=== PATIENT | male | born 1980 | race Caucasian/White ===

== ENCOUNTER 2020-04-08 02:25 | Emergency (ER) | payer MEDICAID ==
[~2020-04-08] VITALS: Ht 165.1 cm; Wt 77.0 kg
[2020-04-08] MEDS ORDERED: SODIUM CHLORIDE 0.9% 1,000 ML IV ONE (02:52)
[2020-04-08] MEDS ORDERED: MORPHINE SULFATE 4 MG/ML CPJ (NOT FOR IM USE) IV STA (02:52)
[2020-04-08] MEDS ORDERED: ONDANSETRON HCL 4MG/2ML INJ IV STA (02:52)
[2020-04-08] MEDS ORDERED: AMPICILLIN SOD/SULBACTAM NA 1.5 G in SODIUM CHLORIDE 0.9% 50 ML IV STA (02:52)
[2020-04-08] MEDS ORDERED: TETANUS, DIPHTHERIA, PERTUSSIS VAC/PF 0.5ML (>7YR OLD) IM ONE (03:00)
[2020-04-08] MEDS ORDERED: LIDOCAINE HCL/PF 1% 10 MG/ML 5ML VIAL IJ ONE (03:00)
[2020-04-08 03:14] LABS: BASOPHILS % 0.7 % (0.0-2.0); EOSINOPHILS % 0.9 % (0.0-5.0); HEMATOCRIT. 43.4 % (42.0-52.0); HEMOGLOBIN. 14.6 g/dL (14.0-18.0); LYMPHOCYTES % 32.9 % (20.0-50.0); MEAN CORPUSCULAR HEMOGLOBIN 26.9 pg (28.0-32.0); MEAN PLATELET VOLUME 8.2 fl (7.4-10.4); MONOCYTES % 5.3 % (2.0-8.0); NEUTROPHILS % 60.2 % (40.0-76.0); PLATELET 304 x1000/uL (130-400); RED BLOOD CELL COUNT 5.42 mill/uL (4.7-6.1); RED CELL DISTRIBUTION WIDTH 14.2 % (11.6-14.6)
[2020-04-08 03:19] LABS: CHLORIDE 108 mEq/L (98-107)
[2020-04-08 05:00] VITALS: BP 141/93
== END 2020-04-08 06:29 | disposition home or self-care (01) ==
LOC: ER 02:25
DX: S62.613B Displaced fracture of proximal phalanx of left middle finger, initial encounter for open fracture (principal); S66.323A Laceration of extensor muscle, fascia and tendon of left middle finger at wrist and hand level, initial encounter; W54.0XXA Bitten by dog, initial encounter; Y93.89 Activity, other specified; Y92.89 Other specified places as the place of occurrence of the external cause
CPT/HCPCS: 12002; 36415; 73130; 80048; 85025; 90471; 90715; 96365; 96375; 99284; J0295; J2270; J2405; J3490; J7030